=== PATIENT | female | born 1970 | race Caucasian/White ===

== ENCOUNTER → 2017-03-26 | Outpatient (CLI) | payer MEDICAID | END | disposition home or self-care (01) | LOC: CFH 07:11 | PROVIDERS: ATTEND Genetic Counselor, MS | DX: Z12.31 Encounter for screening mammogram for malignant neoplasm of breast (principal); E04.1 Nontoxic single thyroid nodule; M95.4 Acquired deformity of chest and rib | CPT/HCPCS: 76536; 76705; G0202 ==

== ENCOUNTER → 2017-11-11 | Outpatient (CLI) | payer MEDICAID | END | disposition home or self-care (01) | LOC: CFH 09:13 | PROVIDERS: ATTEND Genetic Counselor, MS | DX: J34.2 Deviated nasal septum (principal); H70.92 Unspecified mastoiditis, left ear; J32.9 Chronic sinusitis, unspecified | CPT/HCPCS: 70486 ==

== ENCOUNTER → 2018-02-10 | Outpatient (CLI) | payer BC, MEDICAID | END | disposition home or self-care (01) | LOC: CFH 08:07 | PROVIDERS: ATTEND Genetic Counselor, MS | DX: Z13.820 Encounter for screening for osteoporosis (principal); E03.9 Hypothyroidism, unspecified | CPT/HCPCS: 77080 ==

== ENCOUNTER → 2018-05-14 | Outpatient (CLI) | payer BC, MEDICAID | END | disposition home or self-care (01) | LOC: CFH 07:13 | PROVIDERS: ATTEND Genetic Counselor, MS | DX: Z12.31 Encounter for screening mammogram for malignant neoplasm of breast (principal); R94.5 Abnormal results of liver function studies | CPT/HCPCS: 76700; 77063; 77067 ==

== ENCOUNTER → 2019-11-12 | Outpatient (CLI) | payer BC, MEDICAID | END | disposition home or self-care (01) | LOC: CFH 08:24 | PROVIDERS: ATTEND Genetic Counselor, MS | DX: Z12.31 Encounter for screening mammogram for malignant neoplasm of breast (principal) | CPT/HCPCS: 77067 ==

== ENCOUNTER 2020-05-18 17:47 | Emergency (ER) | payer BC, MEDICAID ==
[~2020-05-18] VITALS: Ht 172.7 cm; Wt 62.7 kg
[2020-05-18] MEDS ORDERED: ONDANSETRON 2MG/ML, 2ML ONE (18:24)
[2020-05-18] MEDS ORDERED: MAALOX/HYOSCYAMINE/LIDOCAINE 45 ML BTL ONE (18:25)
[2020-05-18] MEDS ORDERED: FAMOTIDINE 20 MG/2 ML ONE (18:25)
[2020-05-18] MEDS ORDERED: MAALOX/HYOSCYAMINE/LIDOCAINE 45 ML BTL PO ONE (18:30)
[2020-05-18] MEDS ORDERED: SODIUM CHLORIDE 0.9% 1,000ML IVBOLUS ONE (18:30)
[2020-05-18] MEDS ORDERED: SODIUM CHLORIDE FLUSH 10ML SYR IVF ONE (18:30)
[2020-05-18] MEDS ORDERED: FAMOTIDINE 20 MG/2 ML IV ONE (18:30)
[2020-05-18] MEDS ORDERED: ONDANSETRON 2MG/ML, 2ML IVPush ONE (18:30)
--- NOTE | 2020-05-18 18:32 | NUR ---
LATE ENTRY DUE TO PATIENT CARE: THIS IS A 49 YO FEMALE COMING IN FOR EPIGASTRIC ABD/CHEST PAIN WITH SOB AND COUGH STARTING 3 DAYS AGO. NO RADIATION OF PAIN, WORSENS WITH CHANGES IN POSITION. LUNG SOUNDS ARE CLEAR, RESPIRATIONS EVEN AND DO NOT APPEAR TO BE LABORED. ALL MONITORING IN PLACE, NSR ON MARKETING DATABASE ANALYST. VSS, NADN. PIV PLACED AND MEDICATED PER EMAR
--- NOTE | 2020-05-18 18:52 | NUR ---
Pt bedside report From balaji rn. This rn to assume care of pt. No immediate needs from pt. Awaiting results.
[2020-05-18 18:56] LABS: BASOPHILS # (AUTO) 0.01 x10^3/uL (0-0.1); BASOPHILS % (AUTO) 0 % (0-1); EOSINOPHILS # (AUTO) 0.02 x10^3/uL (0-0.4); EOSINOPHILS % (AUTO) 1 % (1-7); LYMPHOCYTES # (AUTO) 1.91 x10^3/uL (1-3.4); LYMPHOCYTES % (AUTO) 50 % (22-44); MD NO; MEAN CORPUSCULAR HEMOGLOBIN 33.8 pg (27.0-34.8); MEAN CORPUSCULAR HGB CONC 34.9 g/dL (32.4-35.8); MEAN CORPUSCULAR VOLUME 96.7 fL (80-100); MEAN PLATELET VOLUME 6.9 fL (7.4-10.4); MONOCYTES # (AUTO) 0.39 x10^3/uL (0.2-0.8); MONOCYTES % (AUTO) 10 % (2-9); NEUTROPHILS # (AUTO) 1.46 x10^3/uL (1.8-6.8); NEUTROPHILS % (AUTO) 39 % (42-75); PLATELET COUNT 185 x10^3/uL (130-400); RED BLOOD COUNT 3.62 x10^6/uL (3.82-5.3); RED CELL DISTRIBUTION WIDTH 15.2 % (9.6-15.2)
--- NOTE | 2020-05-18 18:58 | NUR ---
TASK RN: PATIENT GIVEN GI COCKTAIL
[2020-05-18 19:07] LABS: ALANINE AMINOTRANSFERASE 36 U/L (12-78); ALBUMIN 3.1 g/dL (3.4-5.0); ANION GAP 7 mmol/L (5-15); CALCIUM 7.3 mg/dL (8.5-10.1); CHLORIDE 108 mmol/L (98-107); CREATININE 0.71 mg/dL (0.55-1.02)
[2020-05-18 19:09] LABS: ALKALINE PHOSPHATASE 45 U/L (45-117); BILIRUBIN,TOTAL 0.4 mg/dL (0.2-1.0); TOTAL PROTEIN 6.1 g/dL (6.4-8.2)
[2020-05-18 19:33] VITALS: BP 129/83
== END 2020-05-18 19:40 | disposition home or self-care (01) ==
LOC: ED 19:17
DX: K52.9 Noninfective gastroenteritis and colitis, unspecified (principal); R10.13 Epigastric pain; R07.89 Other chest pain; R05 Cough; R06.00 Dyspnea, unspecified; R11.2 Nausea with vomiting, unspecified
CPT/HCPCS: 36415; 71045; 80053; 83690; 85025; 93005; 96361; 96374; 96375; 99285; J2405; J3490; J7030

== ENCOUNTER 2020-05-22 11:33 | Emergency (ER) | payer BC, MEDICAID ==
[~2020-05-22] VITALS: Ht 172.7 cm; Wt 62.7 kg
[2020-05-22 11:38] VITALS: BP 110/77
== END 2020-05-22 13:38 | disposition home or self-care (01) ==
LOC: ED 13:00
DX: R05 Cough (principal); Z20.828 Contact with and (suspected) exposure to other viral communicable diseases
CPT/HCPCS: 36415; 87635; 99283

== ENCOUNTER 2020-10-13 11:50 | Outpatient (CLI) | payer BC, MEDICAID | END 2020-10-13 23:59 | disposition home or self-care (01) | LOC: RAD 11:50 | DX: Z02.9 Encounter for administrative examinations, unspecified (principal) ==